=== PATIENT | female | born 1955 | race Two or more races ===

== ENCOUNTER → 2024-10-28 | Emergency (ER) | payer OTHER ==
[~2024-10-28] VITALS: Ht 149.9 cm; Wt 90.7 kg
[~2024-10-28] MED LIST: ATORVASTATIN CA40 MG PO; HYDROCHLOROTHIA25 MG PO; OZEMPIC1 MG/0.71 SQ; ZESTRIL5 MG; ZOLOFT50 MG PO
[2024-10-28 15:19] VITALS: BP 129/80; O2SAT 95
== END | disposition left against medical advice (07) ==
LOC: ER 14:35
DX: Z53.21 Procedure and treatment not carried out due to patient leaving prior to being seen by health care provider (principal)